=== PATIENT | female | born 1955 | race Two or more races ===

== ENCOUNTER 2022-02-21 12:32 | Emergency (ER) | payer OTHER ==
[~2022-02-21] VITALS: Ht 157.5 cm; Wt 64.9 kg
[2022-02-21] MEDS ORDERED: JENTADUETO 2.51 EAC2 PO (12:52)
[2022-02-21] MEDS ORDERED: AVAPRO75 MG PO (12:52)
[2022-02-21] MEDS ORDERED: LANTUS SOL100 UNIT/1 (12:53)
== END 2022-02-21 14:29 | disposition home or self-care (01) ==
LOC: ER 12:32
DX: L97.319 Non-pressure chronic ulcer of right ankle with unspecified severity (principal); E11.9 Type 2 diabetes mellitus without complications; Z79.4 Long term (current) use of insulin; I10 Essential (primary) hypertension; Z88.6 Allergy status to analgesic agent